=== PATIENT | female | born 1965 | race Caucasian/White ===

== ENCOUNTER 2022-03-12 16:45 | Emergency (ER) | payer BC ==
[2022-03-12] MEDS ORDERED: Meclizine 12.5 MG Tab PO ONE (17:19)
[2022-03-12] MEDS ORDERED: Sodium Chloride 0.9% 10 ML Syringe FLUSH PRN (17:19)
[2022-03-12 17:43] LABS: AMPHETAMINES,URINE NEGATIVE (NEGATIVE); BARBITURATES,URINE NEGATIVE (NEGATIVE); BENZODIAZEPINE,URINE NEGATIVE (NEGATIVE); MDMA (ECSTASY), URINE NEGATIVE (NEGATIVE); METHADONE,URINE NEGATIVE (NEGATIVE); METHAMPHETAMINES,URINE NEGATIVE (NEGATIVE); OPIATES,URINE NEGATIVE (NEGATIVE); OXYCODONE,URINE NEGATIVE (NEGATIVE); PHENCYCLIDINE,URINE NEGATIVE (NEGATIVE); TCA,URINE NEGATIVE (NEGATIVE)
[2022-03-12 17:54] LABS: CORONAVIRUS COVID-19 NAA NEGATIVE (NEGATIVE)
[2022-03-12 18:23] LABS: ANION GAP 8.5 mEq/L (7-13); CHLORIDE,CL 100 mmol/L (98-107); ESTIMATED GFR 77 mL/min (>=60); SODIUM,NA 136 mmol/L (136-145)
[2022-03-12] MEDS ORDERED: Potassium Chloride 20 MEQ in Premix Bag 1 BAG IV ONE (18:29)
[2022-03-12] MEDS: Potassium Chloride 20 MEQ in Premix Bag 1 BAG IV ONE ×2 (18:36→18:51)
[2022-03-12] MEDS ORDERED: Potassium Chloride 10% 20 MEQ/15 ML Soln 15 ML UD Cup PO ONE (18:52)
[2022-03-13] MEDS ORDERED: Potassium Chloride 10% 20 MEQ/15 ML Soln 15 ML UD Cup PO ONE (18:27)
== END 2022-03-12 23:19 | disposition home or self-care (01) ==
LOC: DL.ED 16:45
DX: E87.6 Hypokalemia (principal); R82.5 Elevated urine levels of drugs, medicaments and biological substances; I10 Essential (primary) hypertension; E66.9 Obesity, unspecified; Z88.0 Allergy status to penicillin; Z79.899 Other long term (current) drug therapy; Z68.41 Body mass index [BMI] 40.0-44.9, adult
CPT/HCPCS: 0240U; 36415; 70450; 80053; 80305-QW; 80307; 81003; 82607; 82947; 84443; 84484; 85025; 93005; 93010; 96365; 96366; 99284; 99285-25; A9270-GY; J3480; J3490

== ENCOUNTER 2025-05-29 19:47 | Emergency (ER) | payer BC ==
[2025-05-29] MEDS: Dexamethasone 4 MG/ML SDV IM ONE (21:02)
== END 2025-05-29 21:24 | disposition home or self-care (01) ==
LOC: DL.ED 19:47
DX: L50.9 Urticaria, unspecified (principal); I10 Essential (primary) hypertension; Z88.0 Allergy status to penicillin; Z91.040 Latex allergy status; Z79.899 Other long term (current) drug therapy; Z90.710 Acquired absence of both cervix and uterus
CPT/HCPCS: 87081; 87430; 96372; 99283; J1100